=== PATIENT | male | born 1975 | race Caucasian/White ===

== ENCOUNTER 2021-04-22 17:01 | Emergency (ER) | payer OTHER ==
[2021-04-22] MEDS ORDERED: KEFLEX750 MG PO (19:41)
== END 2021-04-22 19:58 | disposition home or self-care (01) ==
LOC: ER1 17:01
DX: S51.822A Laceration with foreign body of left forearm, initial encounter (principal); Z23 Encounter for immunization; W26.8XXA Contact with other sharp object(s), not elsewhere classified, initial encounter; F17.200 Nicotine dependence, unspecified, uncomplicated
CPT/HCPCS: 12031; 73090; 90471; 90715; 96374; 99283; J0690